=== PATIENT | male | born 1990 | race African-American/Black ===

== ENCOUNTER 2018-09-01 10:09 | Emergency (ER) | payer SELFPAY ==
[~2018-09-01] VITALS: Ht 182.9 cm; Wt 106.6 kg
[2018-09-01 10:57] VITALS: BP 150/92
--- NOTE | 2018-09-01 11:35 | PHYS DOC ---
Past Medical History Past Medical History: Hypertension Past Surgical History: No Surgical History Alcohol Use: None Drug Use: Marijuana Adult General Chief Complaint Chief Complaint: COUGH HPI HPI Patient is a 27 year old [f__sex] who presents with [] Review of Systems Review of Systems Constitutional: Denies fever or chills [] Eyes: Denies change in visual acuity, redness, or eye pain [] HENT: Denies nasal congestion or sore throat [] Respiratory: Denies cough or shortness of breath [] Cardiovascular: No additional information not addressed in HPI [] GI: Denies abdominal pain, nausea, vomiting, bloody stools or diarrhea [] : Denies dysuria or hematuria [] Musculoskeletal: Denies back pain or joint pain [] Integument: Denies rash or skin lesions [] Neurologic: Denies headache, focal weakness or sensory changes [] Endocrine: Denies polyuria or polydipsia [] All other systems were reviewed and found to be within normal limits, except as documented in this note. Current Medications Current Medications Current Medications Medications (Trade) Dose Ordered Sig/Sera Start Time Stop Time Status Last Admin Dose Admin Albuterol/ Ipratropium (Duoneb) 3 ml 1X ONCE 09/01/18 11:45 09/01/18 11:58 DC 09/01/18 11:58 3 ML Prednisone (Prednisone) 50 mg 1X ONCE 09/01/18 11:45 09/01/18 11:58 DC 09/01/18 11:50 50 MG Allergies Allergies Allergies Coded Allergies Type Severity Reaction Last Updated Verified Penicillins Allergy Unknown 09/01/18 Yes Physical Exam Physical Exam Constitutional: Well developed, well nourished, no acute distress, non-toxic appearance. [] HENT: Normocephalic, atraumatic, bilateral external ears normal, oropharynx moist, no oral exudates, nose normal. [] Eyes: PERRLA, EOMI, conjunctiva normal, no discharge. [] Neck: Normal range of motion, no tenderness, supple, no stridor. [] Cardiovascular:Heart rate regular rhythm, no murmur [] Lungs & Thorax: Bilateral breath sounds clear to auscultation [] Abdomen: Bowel sounds normal, soft, no tenderness, no masses, no pulsatile masses. [] Skin: Warm, dry, no erythema, no rash. [] Back: No tenderness, no CVA tenderness. [] Extremities: No tenderness, no cyanosis, no clubbing, ROM intact, no edema. [] Neurologic: Alert and oriented X 3, normal motor function, normal sensory function, no focal deficits noted. [] Psychologic: Affect normal, judgement normal, mood normal. [] Current Patient Data Vital Signs Vital Signs Date Time Temp Pulse Resp B/P (MAP) Pulse Ox O2 Delivery O2 Flow Rate FiO2 09/01/18 11:59 Room Air 09/01/18 10:57 98.5 87 16 150/92 (111) 98 98.5 EKG EKG [] Radiology/Procedures Radiology/Procedures [] Course & Med Decision Making Course & Med Decision Making Pertinent Labs and Imaging studies reviewed. (See chart for details) [] Dragon Disclaimer Dragon Disclaimer This electronic medical record was generated, in whole or in part, using a voice recognition dictation system. Departure Departure Impression: Primary Impression: Cough Additional Impression: Bronchitis Disposition: 01 HOME, SELF-CARE Condition: STABLE Referrals: NON,STAFF (PCP) Patient Instructions: Bronchiolitis-Brief, Cough, Adult, Smoking Cessation Additional Instructions: Drink plenty of water and avoid smoking. If symptoms persist follow-up with primary doctor for re-evaluation. Scripts Doxycycline Monohydrate (DOXYCYCLINE MONOHYDRATE) 100 Mg Capsule 1 CAP PO BID, #14 CAP 0 Refills Prov: SUNIL CHOU APRN 09/01/18 Prednisone (PREDNISONE) 50 Mg Tablet 1 TAB PO DAILY, #4 TAB 0 Refills Start 09/02/18 Prov: SUNIL CHOU APRN 09/01/18 Albuterol Sulfate (PROAIR HFA INHALER) 8.5 Gm Hfa.aer.ad 1 PUFF INH PRN Q6HRS PRN for SHORTNESS OF BREATH, #1 INHALER 0 Refills Prov: SUNIL CHOU APRN 09/01/18 Problem Qualifiers SUNIL CHOU APRN Sep 01, 2018 11:35
[2018-09-01] MEDS ORDERED: predniSONE 10 MG TABLET PO ONE (11:45)
[2018-09-01] MEDS ORDERED: IPRATRPIUM/ALBUTEROL 0.5/2.5MG 3 ML NEBU. NEB ONE (11:45)
--- NOTE | 2018-09-01 12:06 | RAD ---
CHEST PA LATERAL History: COUGH FOR A COUPLE WEEKS, COUGHING UP BLOOD TODAY Comparison: None. Findings: The cardiomediastinal silhouette is normal. Pulmonary vasculature is normal. The lungs are clear. No pleural effusion or pneumothorax is seen. There is no acute bone abnormality. IMPRESSION: No acute cardiopulmonary process. Electronically signed by: Kain Pinedo MD (09/01/2018 12:02 PM) [id number]
[2018-09-01] MEDS ORDERED: DOXY100C14 PO (12:41)
[2018-09-01] MEDS ORDERED: PRED50TA PO (12:41)
[2018-09-01] MEDS ORDERED: PROAIR HFA8.5 GM INH (12:41)
== END 2018-09-01 12:48 | disposition home or self-care (01) ==
LOC: ER 10:09
DX: J40 Bronchitis, not specified as acute or chronic (principal); Z88.0 Allergy status to penicillin
CPT/HCPCS: 71046; 94640; 99283; J7512; J7620; 99281

== ENCOUNTER 2019-01-23 15:20 | Inpatient (IN) | payer SELFPAY ==
[~2019-01-23] VITALS: Ht 182.9 cm; Wt 101.6 kg
[~2019-01-23 15:20] MED LIST: ALBU2.5V8 INH; DOXY100C14 PO; PRED50TA PO
[2019-01-23] MEDS ORDERED: IV NORMAL SALINE 1000ML BAG 1,000 ML IV SCH (15:47)
[2019-01-23 15:59] LABS: BASO % 1 % (0-3); EOS % 0 % (0-3); HEMATOCRIT 43.8 % (39.0-53.0); HEMOGLOBIN 15.2 g/dL (13.0-17.5); LYMPH # 1.5 x10^3/uL (1.0-4.8); LYMPH % 28 % (24-48); MEAN CORPUSCULAR HEMOGLOBIN 31 pg (25-35); MEAN CORPUSCULAR HGB CONC 35 g/dL (31-37); MEAN CORPUSCULAR VOLUME 88 fL (79-100); MONO # 0.3 x10^3/uL (0.0-1.1); MONO % 6 % (0-9); NEUT # 3.7 x10^3uL (1.8-7.7); NEUT % 66 % (31-73); PLATELET COUNT 277 x10^3/uL (140-400); RED BLOOD COUNT 4.99 x10^6/uL (4.30-5.70); RED CELL DISTRIBUTION WIDTH 13.3 % (11.5-14.5); WHITE BLOOD COUNT 5.6 x10^3/uL (4.0-11.0)
[2019-01-23] MEDS ORDERED: ONDANSETRON PF 4 MG/2 ML VIAL. IV ONE (16:00)
[2019-01-23 16:11] LABS: ACETAMIN < 2 mcg/ml (10-30); ETHANOL < 10 mg/dL (0-10); SALIC < 2.8 mg/dL (2.8-20.0)
[2019-01-23 16:13] LABS: ALBUMIN 4.7 g/dL (3.4-5.0); CALCIUM 9.3 mg/dL (8.5-10.1); DIRECT BILIRUBIN 0.3 mg/dL (0.0-0.2); GFR 107.7; MAGNESIUM 1.6 mg/dL (1.8-2.4); TOTAL PROTEIN 8.3 g/dL (6.4-8.2)
[2019-01-23 16:15] LABS: POTASSIUM 2.8 mmol/L (3.5-5.1)
--- NOTE | 2019-01-23 16:23 | RAD ---
CT Head W/O Contrast: History: syncope and chest pain Comparison: none Axial images were obtained without contrast. The [place] and white matter appears normal and symmetrical for the patients age. There is no mass effect, extraaxial fluid collections or hydrocephalus. There is no gross bleed. There is no focal loss of b[place]-white matter distinction to suggest acute ischemia, i.e. stroke. Impression: No acute findings. RS Compliance Statement: One or more of the following individualized dose reduction techniques were utilized for this examination: 1. Automated exposure control 2. Adjustment of the mA and/or kV according to patient size 3. Use of iterative reconstruction technique Electronically signed by: Lai Barrow III, MD (01/23/2019 4:20 PM) [id number]
[2019-01-23] MEDS ORDERED: IV NORMAL SALINE 1000ML BAG 1,000 ML IV ONE (16:30)
[2019-01-23] MEDS ORDERED: POTASSIUM CHL 20MEQ PREMIX 50 ML IV ONE (16:30)
--- NOTE | 2019-01-23 16:35 | RAD ---
CHEST PA LATERAL Technique: PA and lateral views of the chest were obtained. Clinical History: CHEST PAIN, PAIN IN AND DOWN LEFT ARM Comparison: September 01, 2018. Findings: The heart and pulmonary vasculature appear within normal limits. The lungs are clear. The pleural margins are clear. Impression: No acute chest process is seen. Electronically signed by: Lai Barrow III, MD (01/23/2019 4:32 PM) [id number]
[2019-01-23] MEDS: POTASSIUM CHLORIDE 10MEQ 100 ML IV SCH ×2 (16:49→18:24)
--- NOTE | 2019-01-23 16:50 | PHYS DOC ---
Past Medical History Past Medical History: Hypertension Past Surgical History: No Surgical History Smoking: Cigarettes Alcohol Use: Occasionally Drug Use: Marijuana Social History Narrative: TOOK AN OXYCODONE THIS MORNING Adult General Chief Complaint Chief Complaint: CHEST PAIN HPI HPI Patient is a 28 year old male who brought in by EMS because of syncope and chest pain. Patient states he became homeless today and was at the street for about 2 hours felt substernal sharp chest pain feet lightheadedness and dizziness and had a syncopal episode and 911 was contacted. Patient states he still has chest pain and rated his pain 9/10 and complaining of shortness of breath, nausea, palpitation, dizziness. Patient states he has history of syncope while ago. Patient states he had 1 pint of whiskey today and some alcohol yesterday and also smoked marijuana and used some street drug. Patient has history of hypertension and smoking and family history of coronary artery disease. Patient currently doesn't take medication for hypertension. Review of Systems Review of Systems Constitutional: Denies fever or chills [] Eyes: Denies change in visual acuity, redness, or eye pain [] HENT: Denies nasal congestion or sore throat [] Respiratory: Denies cough or shortness of breath [] Cardiovascular: No additional information not addressed in HPI [] GI: Denies abdominal pain, vomiting, bloody stools or diarrhea, reports nausea [] : Denies dysuria or hematuria [] Musculoskeletal: Denies back pain or joint pain [] Integument: Denies rash or skin lesions [] Neurologic: Denies headache, focal weakness or sensory changes [] Endocrine: Denies polyuria or polydipsia [] All other systems were reviewed and found to be within normal limits, except as documented in this note. Current Medications Current Medications Current Medications Medications (Trade) Dose Ordered Sig/Sera Start Time Stop Time Status Last Admin Dose Admin Ondansetron HCl (Zofran) 4 mg 1X ONCE 01/23/19 16:00 01/23/19 16:01 DC 01/23/19 16:48 4 MG Sodium Chloride 1,000 ml @ 1,000 mls/hr Q1H 01/23/19 15:47 01/23/19 16:46 DC 01/23/19 16:49 1,000 MLS/HR Allergies Allergies Allergies Coded Allergies Type Severity Reaction Last Updated Verified Penicillins Allergy Unknown 09/01/18 Yes Physical Exam Physical Exam Constitutional: Well developed, well nourished, no acute distress, non-toxic appearance. [] HENT: Normocephalic, atraumatic, bilateral external ears normal, oropharynx moist, no oral exudates, nose normal. [] Eyes: PERRLA, EOMI, conjunctiva normal, no discharge. [] Neck: Normal range of motion, no tenderness, supple, no stridor. [] Cardiovascular:Heart rate regular rhythm, no murmur [] Lungs & Thorax: Bilateral breath sounds clear to auscultation , reproducible substernal pain.[] Abdomen: Bowel sounds normal, soft, no tenderness, no masses, no pulsatile masses. [] Skin: Warm, dry, no erythema, no rash. [] Back: No tenderness, no CVA tenderness. [] Extremities: No tenderness, no cyanosis, no clubbing, ROM intact, no edema. [] Neurologic: Alert and oriented X 3, normal motor function, normal sensory function, no focal deficits noted. [] Psychologic: Affect normal, judgement normal, mood normal. [] Current Patient Data Vital Signs Vital Signs Date Time Temp Pulse Resp B/P (MAP) Pulse Ox O2 Delivery O2 Flow Rate FiO2 01/23/19 15:25 98.2 86 18 146/89 (108) 98 Room Air 98.2 Lab Values Laboratory Tests Test 01/23/19 15:35 White Blood Count 5.6 x10^3/uL (4.0-11.0) Red Blood Count 4.99 x10^6/uL (4.30-5.70) Hemoglobin 15.2 g/dL (13.0-17.5) Hematocrit 43.8 % (39.0-53.0) Mean Corpuscular Volume 88 fL (79-100) Mean Corpuscular Hemoglobin 31 pg (25-35) Mean Corpuscular Hemoglobin Concent 35 g/dL (31-37) Red Cell Distribution Width 13.3 % (11.5-14.5) Platelet Count 277 x10^3/uL (140-400) Neutrophils (%) (Auto) 66 % (31-73) Lymphocytes (%) (Auto) 28 % (24-48) Monocytes (%) (Auto) 6 % (0-9) Eosinophils (%) (Auto) 0 % (0-3) Basophils (%) (Auto) 1 % (0-3) Neutrophils # (Auto) 3.7 x10^3uL (1.8-7.7) Lymphocytes # (Auto) 1.5 x10^3/uL (1.0-4.8) Monocytes # (Auto) 0.3 x10^3/uL (0.0-1.1) Eosinophils # (Auto) 0.0 x10^3/uL (0.0-0.7) Basophils # (Auto) 0.0 x10^3/uL (0.0-0.2) Sodium Level 142 mmol/L (136-145) Potassium Level 2.8 mmol/L (3.5-5.1) *L Chloride Level 103 mmol/L (98-107) Carbon Dioxide Level 27 mmol/L (21-32) Anion Gap 12 (6-14) Blood Urea Nitrogen 9 mg/dL (8-26) Creatinine 1.0 mg/dL (0.7-1.3) Estimated GFR (Cockcroft-Gault) 107.7 Glucose Level 108 mg/dL (70-99) H Calcium Level 9.3 mg/dL (8.5-10.1) Magnesium Level 1.6 mg/dL (1.8-2.4) L Total Bilirubin 1.0 mg/dL (0.2-1.0) Direct Bilirubin 0.3 mg/dL (0.0-0.2) H Aspartate Amino Transferase (AST) 40 U/L (15-37) H Alanine Aminotransferase (ALT) 40 U/L (16-63) Alkaline Phosphatase 58 U/L (46-116) Creatine Kinase 896 U/L (39-308) H Troponin I Quantitative < 0.017 ng/mL (0.000-0.055) Total Protein 8.3 g/dL (6.4-8.2) H Albumin 4.7 g/dL (3.4-5.0) Lipase 54 U/L (73-393) L Salicylates Level < 2.8 mg/dL (2.8-20.0) L Salicylate Last Dose Date Unk Salicylate Last Dose Time Unk Acetaminophen Level < 2 mcg/ml (10-30) L Acetaminophen Last Dose Date Unk Acetaminophen Last Dose Time Unk Ethyl Alcohol Level < 10 mg/dL (0-10) Laboratory Tests 01/23/19 15:35 Laboratory Tests 01/23/19 15:35 EKG EKG EKG interpreted by me. EKG at 1524 showed normal sinus rhythm at rate of 84, PVCs, normal LA and QT intervals, no acute ST and T-wave abnormalities. Radiology/Procedures Radiology/[place] [address] IMAGING REPORT Signed PATIENT: TYSHAWN BARROS ACCOUNT: [id number] : 1990 LOCATION: ER AGE: 28 SEX: M EXAM STATUS: PRE ER ORD. PHYSICIAN: TRACY GARDINER MD REASON: chest pain PROCEDURE: CHEST PA & LATERAL CHEST PA LATERAL Technique: PA and lateral views of the chest were obtained. Clinical History: CHEST PAIN, PAIN IN AND DOWN LEFT ARM Comparison: September 01, 2018. Findings: The heart and pulmonary vasculature appear within normal limits. The lungs are clear. The pleural margins are clear. Impression: No acute chest process is seen. Electronically signed by: Antwan Nicholson III, MD (01/23/2019 4:32 PM) [id number] DICTATED and SIGNED BY: ANTWAN NICHOLSON III, MD DATE: 01/23/[address] [id number] IMAGING REPORT Signed PATIENT: TYSHAWN BARROS ACCOUNT: [id number] : 1990 LOCATION: ER AGE: 28 SEX: M EXAM STATUS: PRE ER ORD. PHYSICIAN: TRACY GARDINER MD REASON: syncope and chest pain PROCEDURE: CT HEAD WO CONTRAST CT Head W/O Contrast: History: syncope and chest pain Comparison: none Axial images were obtained without contrast. The [place] and white matter appears normal and symmetrical for the patients age. There is no mass effect, extraaxial fluid collections or hydrocephalus. There is no gross bleed. There is no focal loss of birmingham-white matter distinction to suggest acute ischemia, i.e. stroke. Impression: No acute findings. PQRS Compliance Statement: One or more of the following individualized dose reduction techniques were utilized for this examination: 1. Automated exposure control 2. Adjustment of the mA and/or kV according to patient size 3. Use of iterative reconstruction technique Electronically signed by: Antwan Nicholson III, MD (01/23/2019 4:20 PM) [email or web address] DICTATED and SIGNED BY: ANTWAN NICHOLSON III, MD DATE: 01/23/19 1620 Course & Med Decision Making Course & Med Decision Making Pertinent Labs and Imaging studies reviewed. (See chart for details) Evaluation of patient in ER showed 28-year-old male patient who was outside for couple hours and had chest pain and syncope on brought in by EMS. Patient did not have alcohol blood test. Patient had elevation of CPK at more than 800 and potassium of 2.8 and treated with IV fluid and IV potassium with improvement of his condition. Lantus. Patient with diagnosis of stroke and rhabdomyolysis and hypokalemia and chest pain and syncope. Patient requiring admission for further evaluation and treatment. Discussed with Dr. Martínez who is in agreement with admission. Discussed findings and plan with patient and family, who acknowledge understanding and agreement. Dragon Disclaimer Dragon Disclaimer This electronic medical record was generated, in whole or in part, using a voice recognition dictation system. Departure Departure Impression: Primary Impression: Rhabdomyolysis Additional Impressions: Hypokalemia Musculoskeletal chest pain Substance abuse Homelessness Syncope Disposition: 09 ADMITTED INPATIENT (at 1630) Admitting Physician: Guille Martínez Condition: IMPROVED Referrals: NON,STAFF (PCP) Critical Care Time Critical care time was 70 minutes exclusive of procedures. Problem Qualifiers Primary Impression: Rhabdomyolysis Rhabdomyolysis type: non-traumatic Qualified Codes: M62.82 - Rhabdomyolysis Additional Impressions: Syncope Syncope type: unspecified Qualified Codes: R55 - Syncope and collapse TRACY GARDINER MD Jan 23, 2019 16:50
--- NOTE | 2019-01-23 17:25 | NUR ---
Patient arrived to room 262 via bed from ER at 1725. Patient A&OX4. VSS. Patient's fiance & friend at bedside. Patient settled in bed & dinner ordered. The patient, TYSHAWN BARROS, 28 y/o, M admitted by CAIT KRISHNAMURTHY III, DO, was given written information regarding hospital policies, unit procedures and contact persons. Valuables were checked and noted. Patient stated a couple days ago he tried to commit suicide by taking 6 tabs of naproxen but only ended up taking 3 & then his fiance talked him into throwing the 3 up so he did. Patient states he has no thoughts of harming himself anymore. Patient told this RN that he is currently living with his mother but [employer] reported to this RN that he told them he is currently homeless. Will continue to monitor.
[2019-01-23] MEDS: IV NORMAL SALINE 1000ML BAG 1,000 ML IV SCH (17:42)
[2019-01-23 17:46] VITALS: BP 148/98
[2019-01-23] MEDS ORDERED: HYDROcodone/APAP 5/325MG 1 TAB TABLET PO PRN (19:30)
[2019-01-23 19:41] VITALS: BP 124/84
--- NOTE | 2019-01-23 22:46 | HP ---
ADMIT DATE: 01/23/2019 CHIEF COMPLAINT: Syncope. HISTORY OF PRESENT ILLNESS: The patient is a pleasant 28-year-old male who has become homeless because his aunt has kicked him out of the house. Today he had some chest pain and syncopal episode. They called the EMS. The patient states he had two hours of substernal sharp chest pain. He then became lightheaded and dizzy. He also has shortness of breath and had some nausea and a headache. He rates his symptoms at 10/10, worse with moving and better with sitting still. He also took hydrocodone this morning. I discussed the case with ER physician. We are going to admit the patient to the telemetry unit. PAST MEDICAL HISTORY: Hypertension, tobacco abuse, marijuana use and I believe he may have some substance abuse issues, but I am not positive on that. ALLERGIES: None. FAMILY HISTORY: Diabetes. SOCIAL HISTORY: He is homeless. He smokes cigarettes and marijuana. He drinks socially. MEDICATIONS: Reviewed, please refer to the MRAD. REVIEW OF SYSTEMS: GENERAL: No history of weight change, weakness or fevers. SKIN: No bruising, hair changes or rashes. EYES: No blurred, double or loss of vision. NOSE AND THROAT: No history of nosebleeds, hoarseness or sore throat. HEART: No history of palpitations, chest pain or shortness of breath on exertion. LUNGS: Denies cough, hemoptysis, wheezing or shortness of breath. GASTROINTESTINAL: Denies changes in appetite, nausea, vomiting, diarrhea or constipation. GENITOURINARY: No history of frequency, urgency, hesitancy or nocturia. NEUROLOGIC: He complains of weakness and dizziness. PSYCHIATRIC: No history of panic, anxiety or depression. ENDOCRINE: No history of heat or cold intolerance, polyuria or polydipsia. EXTREMITIES: Denies muscle weakness, joint pain, pain on walking or stiffness. PHYSICAL EXAMINATION: VITAL SIGNS: Temperature afebrile, pulse 92, respirations 18 and blood pressure 144/90. GENERAL: He is alert and cooperative. His girlfriend and another lady is present. HEART: Normal S1 and S2. LUNGS: Clear. ABDOMEN: Soft. EXTREMITIES: Trace edema. SKIN: No rash. ENDOCRINE: No thyromegaly. LYMPHATICS: No cervical nodes. HEMATOPOIETIC: No bruising. PSYCHIATRIC: He is depressed. LABORATORY DATA: White count 5 and hemoglobin 15. Troponin is 0. Electrolytes are normal other than potassium of 2.8. EKG shows sinus rhythm. ASSESSMENT AND PLAN: Syncope, hypokalemia, dizziness and chest pain. The patient has been admitted. We will consult Cardiology, serial enzymes, serial EKGs, cardiac monitoring and home meds. Replace his potassium. Full code. DVT prophylaxis. CAIT KRISHNAMURTHY DO DR: JUAN/sudha JOB#: [id number] / [id number]
[2019-01-23 23:00] VITALS: BP 128/61
[2019-01-24] MEDS: IV NORMAL SALINE 1000ML BAG 1,000 ML IV SCH ×2 (00:09→06:57)
[2019-01-24 03:00] VITALS: BP 124/84
[2019-01-24 07:00] VITALS: BP 153/90
[2019-01-24 07:40] LABS: BASO % 0 % (0-3); EOS # 0.1 x10^3/uL (0.0-0.7); EOS % 1 % (0-3); HEMATOCRIT 40.8 % (39.0-53.0); HEMOGLOBIN 13.4 g/dL (13.0-17.5); LYMPH % 35 % (24-48); MEAN CORPUSCULAR HEMOGLOBIN 30 pg (25-35); MEAN CORPUSCULAR HGB CONC 33 g/dL (31-37); MEAN CORPUSCULAR VOLUME 90 fL (79-100); MONO # 0.4 x10^3/uL (0.0-1.1); MONO % 7 % (0-9); NEUT # 3.3 x10^3uL (1.8-7.7); NEUT % 57 % (31-73); PLATELET COUNT 239 x10^3/uL (140-400); RED BLOOD COUNT 4.55 x10^6/uL (4.30-5.70); RED CELL DISTRIBUTION WIDTH 13.2 % (11.5-14.5); WHITE BLOOD COUNT 5.8 x10^3/uL (4.0-11.0)
[2019-01-24 07:48] LABS: CALCIUM 8.5 mg/dL (8.5-10.1); GFR 107.7; POTASSIUM 3.5 mmol/L (3.5-5.1)
--- NOTE | 2019-01-24 09:58 | PDOC2 ---
CARDIAC CONSULT DATE OF CONSULT Date of Consult DATE: 01/24/19 TIME: 09:54 REASON FOR CONSULT Reason for Consult: Chest pain REFERRING PHYSICIAN Referring Physician: Dr. Sorenson SOURCE Source: Chart review, Patient HISTORY OF PRESENT ILLNESS HISTORY OF PRESENT ILLNESS This is a 28 yo male who presented secondary to syncope and chest pain. 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 Patient reports that he was put out of his aunt's house over the weekend and had nowhere to go. Was sitting out in the sun waiting for a friend to take him to an uncles house to stay. Was sitting out in the heat for over 2 hours; reports he started felling dizzy and "had a heat stroke and fell out." When his friend arrived, began having pain in his central chest. Describes as stabbing in nature. Associated with shortness of breath and mild nausea. No palpitations, dizziness, or diaphoresis. Of note, reports heavy consumption of Whiskey yesterday along with marijuana and "pills". PAST MEDICAL HISTORY Cardiovascular: HTN Pulmonary: No pertinent hx CENTRAL NERVOUS SYSTEM: Other (no pertinent hx) Psych: Depression Rheumatologic: No pertinent hx Infectious disease: No pertinent hx ENT: No pertinent hx Renal/: No pertinent hx Endocrine: No pertinent hx PAST SURGICAL HISTORY Past Surgical History: No pertinent history FAMILY HISTORY Family History: Hypertension SOCIAL HISTORY Smoke: No ALCOHOL: heavy Drugs: Marijuana Lives: Homeless CURRENT MEDICATIONS CURRENT MEDICATIONS Current Medications Medications (Trade) Dose Ordered Sig/Sera Route PRN Reason Start Time Stop Time Status Last Admin Dose Admin Sodium Chloride 1,000 ml @ 1,000 mls/hr Q1H IV 01/23/19 15:47 01/23/19 16:46 DC 01/23/19 16:49 Ondansetron HCl (Zofran) 4 mg 1X ONCE IV 01/23/19 16:00 01/23/19 16:01 DC 01/23/19 16:48 Potassium Chloride/Water 100 ml @ 100 mls/hr Q1H IV 01/23/19 16:30 01/23/19 18:29 DC 01/23/19 18:24 Sodium Chloride 1,000 ml @ 150 mls/hr Q6H40M IV 01/23/19 17:29 01/24/19 17:28 01/24/19 06:57 Acetaminophen/ Hydrocodone Bitart (Lortab 5/325) 1 tab PRN Q4HRS PRN PO PAIN 01/23/19 19:30 01/23/19 20:23 ALLERGIES ALLERGIES: Coded Allergies: Penicillins (Verified Allergy, Unknown, 09/01/18) ROS Review of System 14 point ROS conducted with pertinent positives noted above in HPI. PHYSICAL EXAM General: Alert, Oriented X3, Cooperative, No acute distress HEENT: Atraumatic, Mucous membr. moist/pink Lungs: Clear to auscultation, Normal air movement Heart: Regular rate, Normal S1, Normal S2, No murmurs Abdomen: No tenderness Extremities: No cyanosis, No edema, Normal pulses Skin: No significant lesion Neuro: Normal speech, Sensation intact Psych/Mental Status: Mental status NL, Other (anxious ) MUSCULOSKELETAL: Osteoarthritic changes both hands VITALS VITALS Vital Signs Date Time Temp Pulse Resp B/P (MAP) Pulse Ox O2 Delivery O2 Flow Rate FiO2 01/24/19 08:00 Room Air 01/24/19 07:00 97.8 68 18 153/90 (111) 100 97.8 LABS Lab: Laboratory Tests Test 01/23/19 15:35 01/23/19 20:24 01/23/19 23:29 01/24/19 06:30 White Blood Count 5.6 x10^3/uL (4.0-11.0) 5.8 x10^3/uL (4.0-11.0) Red Blood Count 4.99 x10^6/uL (4.30-5.70) 4.55 x10^6/uL (4.30-5.70) Hemoglobin 15.2 g/dL (13.0-17.5) 13.4 g/dL (13.0-17.5) Hematocrit 43.8 % (39.0-53.0) 40.8 % (39.0-53.0) Mean Corpuscular Volume 88 fL (79-100) 90 fL (79-100) Mean Corpuscular Hemoglobin 31 pg (25-35) 30 pg (25-35) Mean Corpuscular Hemoglobin Concent 35 g/dL (31-37) 33 g/dL (31-37) Red Cell Distribution Width 13.3 % (11.5-14.5) 13.2 % (11.5-14.5) Platelet Count 277 x10^3/uL (140-400) 239 x10^3/uL (140-400) Neutrophils (%) (Auto) 66 % (31-73) 57 % (31-73) Lymphocytes (%) (Auto) 28 % (24-48) 35 % (24-48) Monocytes (%) (Auto) 6 % (0-9) 7 % (0-9) Eosinophils (%) (Auto) 0 % (0-3) 1 % (0-3) Basophils (%) (Auto) 1 % (0-3) 0 % (0-3) Neutrophils # (Auto) 3.7 x10^3uL (1.8-7.7) 3.3 x10^3uL (1.8-7.7) Lymphocytes # (Auto) 1.5 x10^3/uL (1.0-4.8) 2.0 x10^3/uL (1.0-4.8) Monocytes # (Auto) 0.3 x10^3/uL (0.0-1.1) 0.4 x10^3/uL (0.0-1.1) Eosinophils # (Auto) 0.0 x10^3/uL (0.0-0.7) 0.1 x10^3/uL (0.0-0.7) Basophils # (Auto) 0.0 x10^3/uL (0.0-0.2) 0.0 x10^3/uL (0.0-0.2) Sodium Level 142 mmol/L (136-145) 144 mmol/L (136-145) Potassium Level 2.8 mmol/L (3.5-5.1) 3.5 mmol/L (3.5-5.1) Chloride Level 103 mmol/L (98-107) 107 mmol/L (98-107) Carbon Dioxide Level 27 mmol/L (21-32) 28 mmol/L (21-32) Anion Gap 12 (6-14) 9 (6-14) Blood Urea Nitrogen 9 mg/dL (8-26) 8 mg/dL (8-26) Creatinine 1.0 mg/dL (0.7-1.3) 1.0 mg/dL (0.7-1.3) Estimated GFR (Cockcroft-Gault) 107.7 107.7 Glucose Level 108 mg/dL (70-99) 99 mg/dL (70-99) Calcium Level 9.3 mg/dL (8.5-10.1) 8.5 mg/dL (8.5-10.1) Magnesium Level 1.6 mg/dL (1.8-2.4) Total Bilirubin 1.0 mg/dL (0.2-1.0) Direct Bilirubin 0.3 mg/dL (0.0-0.2) Aspartate Amino Transf (AST/SGOT) 40 U/L (15-37) Alanine Aminotransferase (ALT/SGPT) 40 U/L (16-63) Alkaline Phosphatase 58 U/L (46-116) Creatine Kinase 896 U/L (39-308) Troponin I Quantitative < 0.017 ng/mL (0.000-0.055) < 0.017 ng/mL (0.000-0.055) 0.017 ng/mL (0.000-0.055) Total Protein 8.3 g/dL (6.4-8.2) Albumin 4.7 g/dL (3.4-5.0) Lipase 54 U/L (73-393) Salicylates Level < 2.8 mg/dL (2.8-20.0) Salicylate Last Dose Date Unk Salicylate Last Dose Time Unk Acetaminophen Level < 2 mcg/ml (10-30) Acetaminophen Last Dose Date Unk Acetaminophen Last Dose Time Unk Ethyl Alcohol Level < 10 mg/dL (0-10) ASSESSMENT/PLAN ASSESSMENT/PLAN 1. Chest pain, atypical. AMI ruled out. 2. Syncope; etiology unclear. No significant acute events on telemetry 3. Hypertension; mildly elevated 4. Hypokalemia; replaced 6. Hypomagnesemia; replaced 7. Depression; as per PCP 8. ETOH abuse 9. Substance abuse. UDS pending. Recommendations Echo to assess LV systolic function/presence of valvular anomalies Discussed adding low-dose lisinopril for BP control; patient not interested Discussed and encourage cessation from heavy alcohol consumption and drug. Supportive care If echo WNL, may discharge from a CV standpoint. NIC SALAZAR APRN Jan 24, 2019 09:58
[2019-01-24 11:09] VITALS: BP 148/83
--- NOTE | 2019-01-24 11:27 | PDOC ---
PROGRESS NOTES Chief Complaint Chief Complaint syncope History of Present Illness History of Present Illness Patient resting comfortably in bed, states he is ready to go home, no complaints this morning. He has an ECHO pending today. Vitals Vitals Vital Signs Date Time Temp Pulse Resp B/P (MAP) Pulse Ox O2 Delivery O2 Flow Rate FiO2 01/24/19 11:09 98.4 67 18 148/83 (104) 99 Room Air 98.4 Physical Exam General: Alert, Oriented X3, No acute distress Heart: Regular rate, Normal S1, Normal S2, No murmurs Lungs: Clear Abdomen: Normal bowel sounds, Soft, No tenderness Extremities: No clubbing, No cyanosis, No edema Skin: No rashes, No breakdown, No significant lesion Labs LABS Laboratory Tests Test 01/23/19 15:35 01/23/19 20:24 01/23/19 23:29 01/24/19 06:30 White Blood Count 5.6 x10^3/uL (4.0-11.0) 5.8 x10^3/uL (4.0-11.0) Red Blood Count 4.99 x10^6/uL (4.30-5.70) 4.55 x10^6/uL (4.30-5.70) Hemoglobin 15.2 g/dL (13.0-17.5) 13.4 g/dL (13.0-17.5) Hematocrit 43.8 % (39.0-53.0) 40.8 % (39.0-53.0) Mean Corpuscular Volume 88 fL (79-100) 90 fL (79-100) Mean Corpuscular Hemoglobin 31 pg (25-35) 30 pg (25-35) Mean Corpuscular Hemoglobin Concent 35 g/dL (31-37) 33 g/dL (31-37) Red Cell Distribution Width 13.3 % (11.5-14.5) 13.2 % (11.5-14.5) Platelet Count 277 x10^3/uL (140-400) 239 x10^3/uL (140-400) Neutrophils (%) (Auto) 66 % (31-73) 57 % (31-73) Lymphocytes (%) (Auto) 28 % (24-48) 35 % (24-48) Monocytes (%) (Auto) 6 % (0-9) 7 % (0-9) Eosinophils (%) (Auto) 0 % (0-3) 1 % (0-3) Basophils (%) (Auto) 1 % (0-3) 0 % (0-3) Neutrophils # (Auto) 3.7 x10^3uL (1.8-7.7) 3.3 x10^3uL (1.8-7.7) Lymphocytes # (Auto) 1.5 x10^3/uL (1.0-4.8) 2.0 x10^3/uL (1.0-4.8) Monocytes # (Auto) 0.3 x10^3/uL (0.0-1.1) 0.4 x10^3/uL (0.0-1.1) Eosinophils # (Auto) 0.0 x10^3/uL (0.0-0.7) 0.1 x10^3/uL (0.0-0.7) Basophils # (Auto) 0.0 x10^3/uL (0.0-0.2) 0.0 x10^3/uL (0.0-0.2) Sodium Level 142 mmol/L (136-145) 144 mmol/L (136-145) Potassium Level 2.8 mmol/L (3.5-5.1) 3.5 mmol/L (3.5-5.1) Chloride Level 103 mmol/L (98-107) 107 mmol/L (98-107) Carbon Dioxide Level 27 mmol/L (21-32) 28 mmol/L (21-32) Anion Gap 12 (6-14) 9 (6-14) Blood Urea Nitrogen 9 mg/dL (8-26) 8 mg/dL (8-26) Creatinine 1.0 mg/dL (0.7-1.3) 1.0 mg/dL (0.7-1.3) Estimated GFR (Cockcroft-Gault) 107.7 107.7 Glucose Level 108 mg/dL (70-99) 99 mg/dL (70-99) Calcium Level 9.3 mg/dL (8.5-10.1) 8.5 mg/dL (8.5-10.1) Magnesium Level 1.6 mg/dL (1.8-2.4) Total Bilirubin 1.0 mg/dL (0.2-1.0) Direct Bilirubin 0.3 mg/dL (0.0-0.2) Aspartate Amino Transf (AST/SGOT) 40 U/L (15-37) Alanine Aminotransferase (ALT/SGPT) 40 U/L (16-63) Alkaline Phosphatase 58 U/L (46-116) Creatine Kinase 896 U/L (39-308) Troponin I Quantitative < 0.017 ng/mL (0.000-0.055) < 0.017 ng/mL (0.000-0.055) 0.017 ng/mL (0.000-0.055) Total Protein 8.3 g/dL (6.4-8.2) Albumin 4.7 g/dL (3.4-5.0) Lipase 54 U/L (73-393) Salicylates Level < 2.8 mg/dL (2.8-20.0) Salicylate Last Dose Date Unk Salicylate Last Dose Time Unk Acetaminophen Level < 2 mcg/ml (10-30) Acetaminophen Last Dose Date Unk Acetaminophen Last Dose Time Unk Ethyl Alcohol Level < 10 mg/dL (0-10) Review of Systems Review of Systems denies SOB, active chest pain Assessment and Plan Assessmemt and Plan Problems Medical Problems: (1) Homelessness Status: Acute (2) Musculoskeletal chest pain Status: Acute (3) Substance abuse Status: Acute (4) Syncope Status: Acute Assessment: Syncope Chest pain Rhabdomyolysis Hypokalemia - resolved Hypertension, history of Tobaccoism Plan: Serial cardiac enzymes negative Tele reviewed - NSR, 70s Cardiology: ECHO today, appreciate recs Will recheck CK now, CK 896 on admission Continue IVF Pain management prn PT/OT DVT ppx Dispo: anticipate discharge today if CK down and ECHO within normal limits Comment Review of Relevant I have reviewed the following items charles (where applicable) has been applied. Labs Laboratory Tests Test 01/23/19 15:35 01/23/19 20:24 01/23/19 23:29 01/24/19 06:30 White Blood Count 5.6 x10^3/uL (4.0-11.0) 5.8 x10^3/uL (4.0-11.0) Red Blood Count 4.99 x10^6/uL (4.30-5.70) 4.55 x10^6/uL (4.30-5.70) Hemoglobin 15.2 g/dL (13.0-17.5) 13.4 g/dL (13.0-17.5) Hematocrit 43.8 % (39.0-53.0) 40.8 % (39.0-53.0) Mean Corpuscular Volume 88 fL (79-100) 90 fL (79-100) Mean Corpuscular Hemoglobin 31 pg (25-35) 30 pg (25-35) Mean Corpuscular Hemoglobin Concent 35 g/dL (31-37) 33 g/dL (31-37) Red Cell Distribution Width 13.3 % (11.5-14.5) 13.2 % (11.5-14.5) Platelet Count 277 x10^3/uL (140-400) 239 x10^3/uL (140-400) Neutrophils (%) (Auto) 66 % (31-73) 57 % (31-73) Lymphocytes (%) (Auto) 28 % (24-48) 35 % (24-48) Monocytes (%) (Auto) 6 % (0-9) 7 % (0-9) Eosinophils (%) (Auto) 0 % (0-3) 1 % (0-3) Basophils (%) (Auto) 1 % (0-3) 0 % (0-3) Neutrophils # (Auto) 3.7 x10^3uL (1.8-7.7) 3.3 x10^3uL (1.8-7.7) Lymphocytes # (Auto) 1.5 x10^3/uL (1.0-4.8) 2.0 x10^3/uL (1.0-4.8) Monocytes # (Auto) 0.3 x10^3/uL (0.0-1.1) 0.4 x10^3/uL (0.0-1.1) Eosinophils # (Auto) 0.0 x10^3/uL (0.0-0.7) 0.1 x10^3/uL (0.0-0.7) Basophils # (Auto) 0.0 x10^3/uL (0.0-0.2) 0.0 x10^3/uL (0.0-0.2) Sodium Level 142 mmol/L (136-145) 144 mmol/L (136-145) Potassium Level 2.8 mmol/L (3.5-5.1) 3.5 mmol/L (3.5-5.1) Chloride Level 103 mmol/L (98-107) 107 mmol/L (98-107) Carbon Dioxide Level 27 mmol/L (21-32) 28 mmol/L (21-32) Anion Gap 12 (6-14) 9 (6-14) Blood Urea Nitrogen 9 mg/dL (8-26) 8 mg/dL (8-26) Creatinine 1.0 mg/dL (0.7-1.3) 1.0 mg/dL (0.7-1.3) Estimated GFR (Cockcroft-Gault) 107.7 107.7 Glucose Level 108 mg/dL (70-99) 99 mg/dL (70-99) Calcium Level 9.3 mg/dL (8.5-10.1) 8.5 mg/dL (8.5-10.1) Magnesium Level 1.6 mg/dL (1.8-2.4) Total Bilirubin 1.0 mg/dL (0.2-1.0) Direct Bilirubin 0.3 mg/dL (0.0-0.2) Aspartate Amino Transf (AST/SGOT) 40 U/L (15-37) Alanine Aminotransferase (ALT/SGPT) 40 U/L (16-63) Alkaline Phosphatase 58 U/L (46-116) Creatine Kinase 896 U/L (39-308) Troponin I Quantitative < 0.017 ng/mL (0.000-0.055) < 0.017 ng/mL (0.000-0.055) 0.017 ng/mL (0.000-0.055) Total Protein 8.3 g/dL (6.4-8.2) Albumin 4.7 g/dL (3.4-5.0) Lipase 54 U/L (73-393) Salicylates Level < 2.8 mg/dL (2.8-20.0) Salicylate Last Dose Date Unk Salicylate Last Dose Time Unk Acetaminophen Level < 2 mcg/ml (10-30) Acetaminophen Last Dose Date Unk Acetaminophen Last Dose Time Unk Ethyl Alcohol Level < 10 mg/dL (0-10) Laboratory Tests Test 01/23/19 15:35 01/23/19 20:24 01/23/19 23:29 01/24/19 06:30 White Blood Count 5.6 x10^3/uL (4.0-11.0) 5.8 x10^3/uL (4.0-11.0) Red Blood Count 4.99 x10^6/uL (4.30-5.70) 4.55 x10^6/uL (4.30-5.70) Hemoglobin 15.2 g/dL (13.0-17.5) 13.4 g/dL (13.0-17.5) Hematocrit 43.8 % (39.0-53.0) 40.8 % (39.0-53.0) Mean Corpuscular Volume 88 fL (79-100) 90 fL (79-100) Mean Corpuscular Hemoglobin 31 pg (25-35) 30 pg (25-35) Mean Corpuscular Hemoglobin Concent 35 g/dL (31-37) 33 g/dL (31-37) Red Cell Distribution Width 13.3 % (11.5-14.5) 13.2 % (11.5-14.5) Platelet Count 277 x10^3/uL (140-400) 239 x10^3/uL (140-400) Neutrophils (%) (Auto) 66 % (31-73) 57 % (31-73) Lymphocytes (%) (Auto) 28 % (24-48) 35 % (24-48) Monocytes (%) (Auto) 6 % (0-9) 7 % (0-9) Eosinophils (%) (Auto) 0 % (0-3) 1 % (0-3) Basophils (%) (Auto) 1 % (0-3) 0 % (0-3) Neutrophils # (Auto) 3.7 x10^3uL (1.8-7.7) 3.3 x10^3uL (1.8-7.7) Lymphocytes # (Auto) 1.5 x10^3/uL (1.0-4.8) 2.0 x10^3/uL (1.0-4.8) Monocytes # (Auto) 0.3 x10^3/uL (0.0-1.1) 0.4 x10^3/uL (0.0-1.1) Eosinophils # (Auto) 0.0 x10^3/uL (0.0-0.7) 0.1 x10^3/uL (0.0-0.7) Basophils # (Auto) 0.0 x10^3/uL (0.0-0.2) 0.0 x10^3/uL (0.0-0.2) Sodium Level 142 mmol/L (136-145) 144 mmol/L (136-145) Potassium Level 2.8 mmol/L (3.5-5.1) 3.5 mmol/L (3.5-5.1) Chloride Level 103 mmol/L (98-107) 107 mmol/L (98-107) Carbon Dioxide Level 27 mmol/L (21-32) 28 mmol/L (21-32) Anion Gap 12 (6-14) 9 (6-14) Blood Urea Nitrogen 9 mg/dL (8-26) 8 mg/dL (8-26) Creatinine 1.0 mg/dL (0.7-1.3) 1.0 mg/dL (0.7-1.3) Estimated GFR (Cockcroft-Gault) 107.7 107.7 Glucose Level 108 mg/dL (70-99) 99 mg/dL (70-99) Calcium Level 9.3 mg/dL (8.5-10.1) 8.5 mg/dL (8.5-10.1) Magnesium Level 1.6 mg/dL (1.8-2.4) Total Bilirubin 1.0 mg/dL (0.2-1.0) Direct Bilirubin 0.3 mg/dL (0.0-0.2) Aspartate Amino Transf (AST/SGOT) 40 U/L (15-37) Alanine Aminotransferase (ALT/SGPT) 40 U/L (16-63) Alkaline Phosphatase 58 U/L (46-116) Creatine Kinase 896 U/L (39-308) Troponin I Quantitative < 0.017 ng/mL (0.000-0.055) < 0.017 ng/mL (0.000-0.055) 0.017 ng/mL (0.000-0.055) Total Protein 8.3 g/dL (6.4-8.2) Albumin 4.7 g/dL (3.4-5.0) Lipase 54 U/L (73-393) Salicylates Level < 2.8 mg/dL (2.8-20.0) Salicylate Last Dose Date Unk Salicylate Last Dose Time Unk Acetaminophen Level < 2 mcg/ml (10-30) Acetaminophen Last Dose Date Unk Acetaminophen Last Dose Time Unk Ethyl Alcohol Level < 10 mg/dL (0-10) Medications Current Medications Sodium Chloride 1,000 ml @ 1,000 mls/hr Q1H IV Last administered on 01/23/19at 16:49; Start 01/23/19 at 15:47; Stop 01/23/19 at 16:46; Status DC Ondansetron HCl (Zofran) 4 mg 1X ONCE IV Last administered on 01/23/19at 16:48; Start 01/23/19 at 16:00; Stop 01/23/19 at 16:01; Status DC Sodium Chloride 1,000 ml @ 1,000 mls/hr 1X ONCE IV ; Start 01/23/19 at 16:30; Stop 01/23/19 at 17:29; Status DC Potassium Chloride/Water 50 ml @ 50 mls/hr 1X ONCE IV ; Start 01/23/19 at 16:30; Stop 01/23/19 at 17:29; Status UNV Potassium Chloride/Water 100 ml @ 100 mls/hr Q1H IV Last administered on 01/23/19at 18:24; Start 01/23/19 at 16:30; Stop 01/23/19 at 18:29; Status DC Sodium Chloride 1,000 ml @ 150 mls/hr Q6H40M IV Last administered on 01/24/19at 06:57; Start 01/23/19 at 17:29; Stop 01/24/19 at 17:28 Acetaminophen/ Hydrocodone Bitart (Lortab 5/325) 1 tab PRN Q4HRS PRN PO PAIN Last administered on 01/23/19at 20:23; Start 01/23/19 at 19:30 Active Scripts Active Doxycycline Monohydrate 100 Mg Capsule 1 Cap PO BID Prednisone 50 Mg Tablet 1 Tab PO DAILY Start 09/02/18 Proair Hfa Inhaler (Albuterol Sulfate) 8.5 Gm Hfa.aer.ad 1 Puff INH PRN Q6HRS PRN Vitals/I & O Vital Sign - Last 24 Hours 01/23/19 01/23/19 01/23/19 01/23/19 15:25 16:55 17:46 18:00 Temp 98.2 98.6 98.2 98.6 Pulse 86 70 69 Resp 18 16 20 B/P (MAP) 146/89 (108) 143/80 (101) 148/98 (115) Pulse Ox 98 99 99 O2 Delivery Room Air Room Air 01/23/19 01/23/19 01/23/19 01/23/19 19:25 19:41 20:23 21:23 Temp 98.5 98.5 Pulse 80 Resp 20 20 20 B/P (MAP) 124/84 (97) Pulse Ox 98 O2 Delivery Room Air Room Air Room Air Room Air 01/23/19 01/24/19 01/24/19 01/24/19 23:00 03:00 07:00 08:00 Temp 97.7 98.5 97.8 97.7 98.5 97.8 Pulse 69 55 68 Resp 20 20 18 B/P (MAP) 128/61 (83) 124/84 (97) 153/90 (111) Pulse Ox 98 100 O2 Delivery Room Air Room Air Room Air Room Air 01/24/19 11:09 Temp 98.4 98.4 Pulse 67 Resp 18 B/P (MAP) 148/83 (104) Pulse Ox 99 O2 Delivery Room Air Intake and Output 01/23/19 01/23/19 01/24/19 14:59 22:59 06:59 Intake Total 1000 ml Output Total 250 ml 300 ml Balance -250 ml 700 ml LOW KRISHNAMURTHYL K III DO Jan 24, 2019 11:27
--- NOTE | 2019-01-24 12:48 | NUR ---
SS following for discharge planning. SS reviewed chart. Discharge order on the chart. Pt is from home and currently on room air. SS received referral for help regarding alcohol and substance abuse. SS contacted PAT team and made referral for assessment and evaluation. PAT to visit with pt today.
--- NOTE | 2019-01-24 14:05 | NUR ---
PATIENT LEAVING AMA. SECURITY CALLED TO ESCORT PATIENT OFF UNIT.
--- NOTE | 2019-01-24 14:40 | EKG ---
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
--- NOTE | 2019-01-24 19:12 | DS ---
DATE OF DISCHARGE: 01/24/2019 ADMISSION DIAGNOSES: Chest pain, hypokalemia, rhabdomyolysis, syncope. DISCHARGE DIAGNOSES: Resolving syncope, resolving hypokalemia, resolving chest pain, suspect gastroesophageal reflux disease; resolving rhabdomyolysis from the fall. CONSULTS: Cardiology. PROCEDURES: None. HOSPITAL COURSE: The patient is a pleasant 28-year-old male who had a syncopal episode. He came in with an elevated CPK in the 800s. He had fallen and I suspect his elevated CPK was secondary to that because his troponin was normal. He was a little hypokalemic. We replaced his potassium. We did full cardiac evaluation. Everything so far is negative. I saw him and examined him this morning. He was alert and oriented, in good spirits. His heart tones were normal. His lungs were clear. He had no rashes. His abdominal exam was benign. We plan to discharge to home if okay with consultants. DISPOSITION: Home. ACTIVITY: As tolerated. DIET: Low sodium. MEDICATIONS: We resumed his previous home medications. CAIT KRISHNAMURTHY DO DR: JUAN/sudha JOB#: [id number] / [id number]
== END 2019-01-24 14:19 | disposition left against medical advice (07) | DRG 558 ==
LOC: ER 15:20 → 2 SOUTH 16:26
PROVIDERS: ADMIT Internal Medicine; ATTEND Internal Medicine
DX: M62.82 Rhabdomyolysis (principal); F12.90 Cannabis use, unspecified, uncomplicated; I10 Essential (primary) hypertension; E87.6 Hypokalemia; F17.210 Nicotine dependence, cigarettes, uncomplicated; F32.9 Major depressive disorder, single episode, unspecified; F10.10 Alcohol abuse, uncomplicated; E83.42 Hypomagnesemia; K21.9 Gastro-esophageal reflux disease without esophagitis; W18.39XA Other fall on same level, initial encounter; Y93.89 Activity, other specified; Y92.89 Other specified places as the place of occurrence of the external cause; Y99.8 Other external cause status; Z59.0 Homelessness; Z82.49 Family history of ischemic heart disease and other diseases of the circulatory system; Z88.0 Allergy status to penicillin; Z83.3 Family history of diabetes mellitus
CPT/HCPCS: 36415; 70450; 71046; 80048; 80076; 80329; 82550; 83690; 83735; 84484; 85025; 93005; 96374; 99406; G0480; J2405; J3480; J7030; 99291-25

== ENCOUNTER 2021-04-25 22:15 | Emergency (ER) | payer SELFPAY ==
[~2021-04-25] VITALS: Ht 182.9 cm; Wt 111.4 kg
[~2021-04-25 22:15] MED LIST changes: +DOXY-181 PO; -DOXY100C14 PO
--- NOTE | 2021-04-25 22:35 | PHYS DOC ---
Past Medical History Past Medical History: Hypertension Past Surgical History: No Surgical History Smoking Status: Current Every Day Smoker Alcohol Use: Occasionally Drug Use: Marijuana General Adult EDM: Chief Complaint: CHEST PAIN HPI: HPI: Patient is a 30 year old male who is on no prescription medications presents with a chief complaint of chest pain. Patient states chest pain started around 1600 hrs. Patient states he had associated headache in his chest started hurting. Patient evaluated his blood pressure noted to be high so he took a friend's propanolol. Patient's pain was then left chest did not radiate. Patient denied any associated nausea vomiting or shortness of breath. EKG was performed prior to my evaluation which showed a normal sinus rhythm with no acute changes. I evaluated the patient he had a normal exam. Chest x-ray was performed showed no acute abnormalities. Patient stated to me he does not want any blood drawn. He states he feels much better and would like to be discharged. Review of Systems: Review of Systems: Constitutional: Denies fever or chills. [] Eyes: Denies change in visual acuity. [] HENT: Denies nasal congestion or sore throat. [] Respiratory: Denies cough or shortness of breath. [] Cardiovascular: Positive chest pain or edema. [] GI: Denies abdominal pain, nausea, vomiting, bloody stools or diarrhea. [] : Denies dysuria. [] Musculoskeletal: Denies back pain or joint pain. [] Integument: Denies rash. [] Neurologic: Denies headache, focal weakness or sensory changes. [] Endocrine: Denies polyuria or polydipsia. [] Lymphatic: Denies swollen glands. [] Psychiatric: Denies depression or anxiety. [] Heart Score: C/O Chest Pain: Yes HEART Score for Chest Pain: HEART Score for Chest Pain Response (Comments) Value History Slighlty/Non-Suspicious 0 Age < 45 0 Risk Factors No Risk Factors 0 Total 0 Risk Factors: Risk Factors: DM, Current or recent (<one month) smoker, HTN, HLP, family history of CAD, obesity. Risk Scores: Score 0 - 3: 2.5% MACE over next 6 weeks - Discharge Home Score 4 - 6: 20.3% MACE over next 6 weeks - Admit for Clinical Observation Score 7 - 10: 72.7% MACE over next 6 weeks - Early Invasive Strategies Allergies: Allergies: Allergies Coded Allergies Type Severity Reaction Last Updated Verified Penicillins Allergy Unknown 09/01/18 Yes Physical Exam: PE: Constitutional: Well developed, well nourished, no acute distress, non-toxic appearance. [] HENT: Normocephalic, atraumatic, bilateral external ears normal, oropharynx moist, no oral exudates, nose normal. [] Eyes: PERRLA, EOMI, conjunctiva normal, no discharge. [] Neck: Normal range of motion, no tenderness, supple, no stridor. [] Cardiovascular:Heart rate regular rhythm, no murmur [] Lungs & Thorax: Bilateral breath sounds clear to auscultation [] Abdomen: Bowel sounds normal, soft, no tenderness, no masses, no pulsatile masses. [] Skin: Warm, dry, no erythema, no rash. [] Back: No tenderness, no CVA tenderness. [] Extremities: No tenderness, no cyanosis, no clubbing, ROM intact, no edema. [] Neurologic: Alert and oriented X 3, normal motor function, normal sensory function, no focal deficits noted. [] Psychologic: Affect normal, judgement normal, mood normal. [] EKG: EKG: [] Performed at 2221 Rate 74 Normal sinus rhythm No ST elevation No ST depression No acute HI No acute change when compared to previous EKG Radiology/Procedures: Radiology/Procedures: [] Impression: AP chest. HISTORY: Chest pain AP view was taken of the chest. Lungs are clear. Heart is normal in size. There is no effusion. IMPRESSION: 1. No acute chest disease. Electronically signed by: Angelo Hook MD (04/25/2021 10:50 PM) [facility] Course & Med Decision Making: Course & Med Decision Making Pertinent Labs and Imaging studies reviewed. (See chart for details) [] Dragon Disclaimer: Dragon Disclaimer: This electronic medical record was generated, in whole or in part, using a voice recognition dictation system. Departure Departure Impression: Primary Impression: Chest pain Disposition: HOME / SELF CARE / HOMELESS Condition: STABLE Referrals: NO PCP (PCP) Patient Instructions: Chest Pain (Nonspecific) SKYE ROSA DO Apr 25, 2021 22:34
[2021-04-25 22:52] VITALS: BP 155/89
--- NOTE | 2021-04-25 22:53 | RAD ---
AP chest. HISTORY: Chest pain AP view was taken of the chest. Lungs are clear. Heart is normal in size. There is no effusion. IMPRESSION: 1. No acute chest disease. Electronically signed by: Angelo Hook MD (04/25/2021 10:50 PM) [facility]
--- NOTE | 2021-04-26 06:52 | EKG ---
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
== END 2021-04-25 23:29 | disposition home or self-care (01) ==
LOC: ER 22:15
DX: R07.89 Other chest pain (principal); R51.9 Headache, unspecified; I10 Essential (primary) hypertension; F17.200 Nicotine dependence, unspecified, uncomplicated; Z88.0 Allergy status to penicillin
CPT/HCPCS: 71045; 93005; 99283